=== PATIENT | female | born 1990 | race Caucasian/White ===

== ENCOUNTER 2016-10-05 14:22 | Emergency (ER) | payer SELFPAY ==
[~2016-10-05] VITALS: Ht 157.5 cm; Wt 61.0 kg
[2016-10-05 14:34] VITALS: Ht 157.5 cm; Wt 61.0 kg
== END 2016-10-05 16:58 | disposition left against medical advice (07) ==
LOC: FTE 14:22
DX: Z53.21 Procedure and treatment not carried out due to patient leaving prior to being seen by health care provider (principal)